=== PATIENT | male | born 1960 | race Caucasian/White ===

== ENCOUNTER → 2016-11-02 | Outpatient (REF) | payer MEDICARE ==
[~2016-11-02] MED LIST: /ADVA50050 IN; /MOXI40TA OR; /TIOT18INH INH; ALBU17IN2 IN; BREO1INH3 INH; DUONSOL IN; FERR325T OR; FISH1000 OR; MUCINEX PO; NICO21DI4 TD; OMACOR PO; PRAV40TA OR; PRED10TA2 OR; PRIL20CA OR; ROSU10TA PO; SLEEP AID PO; SOMA350T OR; SPIR12.9 INH; TESS100C OR
[2016-11-02 11:47] LABS: BASO # 0.1 K/mm3 (0.0-0.2); BASO % 0.8 % (0.0-1.0); EOS # 0.3 K/mm3 (0.0-0.50); EOS % 3.7 % (0.0-3.0); LARGE UNSTAINED CELL # 0.2 K/mm3 (0.0-0.4); LARGE UNSTAINED CELL % 1.8 % (0.0-4.0); LYMPH # 1.9 K/mm3 (1.5-4.5); LYMPH % 21.2 % (24.0-44.0); MEAN CORPUSCULAR HEMOGLOBIN 30.8 pg (27.0-33.0); MEAN CORPUSCULAR HGB CONC 32.8 g/dl (32.0-36.5); MEAN CORPUSCULAR VOLUME 93.7 fl (80.0-96.0); MONO # 0.7 K/mm3 (0.0-0.8); MONO % 8.4 % (0.0-5.0); NEUTROPHILS # 5.3 K/mm3 (1.8-7.7); NEUTROPHILS % 64.1 % (36.0-66.0); PLATELET COUNT, AUTOMATED 295 k/mm3 (150-450); RED CELL DISTRIBUTION WIDTH 13.3 % (11.5-14.5); WHITE BLOOD COUNT 8.2 K/mm3 (4.0-10.0)
[2016-11-02 12:30] LABS: ALBUMIN 4.3 GM/DL (3.2-5.2); ALBUMIN/GLOBULIN RATIO 1.34 (1.00-1.93); ALKALINE PHOSPHATASE 80 U/L (45-117); ALT/SGPT 49 U/L (12-78); ANION GAP 9 MEQ/L (8-16); AST/SGOT 34 U/L (15-37); BILIRUBIN,TOTAL 0.8 MG/DL (0.2-1.0); BLOOD UREA NITROGEN 11 MG/DL (7-18); CALCIUM LEVEL 8.6 MG/DL (8.5-10.1); CARBON DIOXIDE LEVEL 27 MEQ/L (21-32); CHLORIDE LEVEL 106 MEQ/L (98-107); CHOLESTEROL LEVEL 115 MG/DL (<200); CREATININE FOR GFR 0.88 MG/DL (0.70-1.30); GLOMERULAR FILTRATION RATE > 60.0 (>56); GLUCOSE, FASTING 119 MG/DL (70-105); POTASSIUM SERUM 4.6 MEQ/L (3.5-5.1); SODIUM LEVEL 142 MEQ/L (136-145); TOTAL PROTEIN 7.5 GM/DL (6.4-8.2); TRIGLYCERIDES LEVEL 185 MG/DL (<150)
== END ==
LOC: M SFHCPLAZ 08:47
PROVIDERS: ATTEND Nurse Practitioner Family
DX: J44.9 Chronic obstructive pulmonary disease, unspecified (principal); D50.9 Iron deficiency anemia, unspecified; E78.5 Hyperlipidemia, unspecified; R73.01 Impaired fasting glucose
CPT/HCPCS: 36415; 80053; 80061; 83036; 83540; 85025; G0463

== ENCOUNTER → 2017-05-07 | Outpatient (REF) | payer MEDICARE ==
[~2017-05-07] MED LIST changes: +CRES10TA32 PO; -ROSU10TA PO
[2017-05-07 11:41] LABS: BASO # 0.1 K/mm3 (0.0-0.2); BASO % 0.8 % (0.0-1.0); EOS # 0.2 K/mm3 (0.0-0.50); EOS % 2.1 % (0.0-3.0); LARGE UNSTAINED CELL # 0.2 K/mm3 (0.0-0.4); LARGE UNSTAINED CELL % 1.7 % (0.0-4.0); LYMPH # 2.2 K/mm3 (1.5-4.5); LYMPH % 19.8 % (24.0-44.0); MEAN CORPUSCULAR HEMOGLOBIN 26.8 pg (27.0-33.0); MEAN CORPUSCULAR HGB CONC 31.4 g/dl (32.0-36.5); MEAN CORPUSCULAR VOLUME 85.4 fl (80.0-96.0); MONO # 0.7 K/mm3 (0.0-0.8); MONO % 7.1 % (0.0-5.0); NEUTROPHILS # 6.9 K/mm3 (1.8-7.7); NEUTROPHILS % 68.5 % (36.0-66.0); PLATELET COUNT, AUTOMATED 364 k/mm3 (150-450); RED CELL DISTRIBUTION WIDTH 14.7 % (11.5-14.5)
[2017-05-07 11:51] LABS: ALBUMIN 3.8 GM/DL (3.2-5.2); ALBUMIN/GLOBULIN RATIO 1.03 (1.00-1.93); ALKALINE PHOSPHATASE 73 U/L (45-117); ALT/SGPT 30 U/L (12-78); ANION GAP 7 MEQ/L (8-16); AST/SGOT 20 U/L (15-37); BILIRUBIN,TOTAL 0.3 MG/DL (0.2-1.0); BLOOD UREA NITROGEN 13 MG/DL (7-18); CALCIUM LEVEL 8.8 MG/DL (8.5-10.1); CARBON DIOXIDE LEVEL 28 MEQ/L (21-32); CHLORIDE LEVEL 105 MEQ/L (98-107); CHOLESTEROL LEVEL 104 MG/DL (<200); GLOMERULAR FILTRATION RATE > 60.0 (>56); GLUCOSE, FASTING 116 MG/DL (70-105); POTASSIUM SERUM 4.6 MEQ/L (3.5-5.1); SODIUM LEVEL 140 MEQ/L (136-145); TOTAL PROTEIN 7.5 GM/DL (6.4-8.2); TRIGLYCERIDES LEVEL 140 MG/DL (<150)
== END ==
LOC: M SFHCLERA 08:12
PROVIDERS: ATTEND Nurse Practitioner Family
DX: J44.9 Chronic obstructive pulmonary disease, unspecified (principal); E11.9 Type 2 diabetes mellitus without complications; I10 Essential (primary) hypertension

== ENCOUNTER → 2017-11-18 | Outpatient (REF) | payer MEDICARE ==
[2017-11-18 12:19] LABS: BASO # 0.1 10^3/uL (0.0-0.2); EOS # 0.3 10^3/uL (0.0-0.50); EOS % 2.7 % (0.0-3.0); HEMATOCRIT 34.3 % (42.0-52.0); HEMOGLOBIN 9.1 g/dl (14.0-18.0); IMMATURE GRANULOCYTE % 0.3 % (0-3.0); LYMPH % 19.7 % (24.0-44.0); MEAN CORPUSCULAR HEMOGLOBIN 18.7 pg (27.0-33.0); MEAN CORPUSCULAR HGB CONC 26.5 g/dl (32.0-36.5); MEAN CORPUSCULAR VOLUME 70.6 fl (80.0-96.0); NEUTROPHILS # 6.6 10^3/uL (1.8-7.7); NEUTROPHILS % 66.3 % (36.0-66.0); PLATELET COUNT, AUTOMATED 275 10^3/uL (150-450); RED BLOOD COUNT 4.86 10^6/uL (4.30-6.10); RED CELL DISTRIBUTION WIDTH 20.8 % (11.5-14.5); WHITE BLOOD COUNT 9.9 10^3/uL (4.0-10.0)
[2017-11-18 12:41] LABS: ALBUMIN 3.9 GM/DL (3.2-5.2); ALKALINE PHOSPHATASE 85 U/L (45-117); ALT/SGPT 24 U/L (12-78); ANION GAP 6 MEQ/L (8-16); AST/SGOT 18 U/L (7-37); BILIRUBIN,TOTAL 0.4 MG/DL (0.2-1.0); BLOOD UREA NITROGEN 10 MG/DL (7-18); CALCIUM LEVEL 8.9 MG/DL (8.5-10.1); CARBON DIOXIDE LEVEL 28 MEQ/L (21-32); CHLORIDE LEVEL 106 MEQ/L (98-107); CHOLESTEROL LEVEL 99 MG/DL (<200); CHOLESTEROL RISK RATIO 3.193 (<5); CREATININE FOR GFR 0.68 MG/DL (0.70-1.30); GLOMERULAR FILTRATION RATE > 60.0 (>56); GLUCOSE, FASTING 105 MG/DL (70-100); HDL CHOLESTEROL 31 MG/DL (>40); LDL CHOLESTEROL 16.6 MG/DL (<100); NON-HDL-C 68 MG/DL; POTASSIUM SERUM 4.5 MEQ/L (3.5-5.1); SODIUM LEVEL 140 MEQ/L (136-145); TOTAL PROTEIN 7.8 GM/DL (6.4-8.2); TRIGLYCERIDES LEVEL 257 MG/DL (<150)
[2017-11-18 13:27] LABS: ESTIMATED AVERAGE GLUCOSE 140 MG/DL (60-110); HEMOGLOBIN A1c 6.5 %
== END ==
LOC: M SFHCLERA 09:10
DX: I10 Essential (primary) hypertension (principal); E11.9 Type 2 diabetes mellitus without complications

== ENCOUNTER → 2017-11-18 | Outpatient (CLI) | payer MEDICARE | LOC: M RAD 08:23 | DX: Z12.2 Encounter for screening for malignant neoplasm of respiratory organs (principal); F17.218 Nicotine dependence, cigarettes, with other nicotine-induced disorders; J44.9 Chronic obstructive pulmonary disease, unspecified; I10 Essential (primary) hypertension; E11.9 Type 2 diabetes mellitus without complications | CPT/HCPCS: G0297 ==

== ENCOUNTER → 2017-11-25 | Outpatient (REF) | payer MEDICARE | LOC: M SFHCLERA 08:10 | DX: D50.9 Iron deficiency anemia, unspecified (principal) ==

== ENCOUNTER 2018-01-14 16:20 | Emergency (ER) | payer MEDICARE ==
[2018-01-14] MEDS: methylPREDNISolone INJ 125 MG/2 ML VIAL (J2930) IV ×2 (17:04)
[2018-01-14 17:16] LABS: BASO # 0.1 10^3/uL (0.0-0.2); BASO % 0.4 % (0.0-1.0); EOS # 0.2 10^3/uL (0.0-0.50); EOS % 1.3 % (0.0-3.0); HEMATOCRIT 38.3 % (42.0-52.0); HEMOGLOBIN 11.2 g/dl (13.5-17.5); IMMATURE GRANULOCYTE % 0.4 % (0-3.0); LYMPH # 2.1 10^3/uL (1.5-4.5); LYMPH % 15.6 % (24.0-44.0); MEAN CORPUSCULAR HEMOGLOBIN 21.6 pg (27.0-33.0); MEAN CORPUSCULAR HGB CONC 29.2 g/dl (32.0-36.5); MEAN CORPUSCULAR VOLUME 73.9 fl (80.0-96.0); MONO # 1.2 10^3/uL (0.0-0.8); MONO % 8.7 % (0.0-5.0); NEUTROPHILS # 10.1 10^3/uL (1.8-7.7); NEUTROPHILS % 73.6 % (36.0-66.0); PLATELET COUNT, AUTOMATED 352 10^3/uL (150-450); RED BLOOD COUNT 5.18 10^6/uL (4.30-6.10); RED CELL DISTRIBUTION WIDTH 24.1 % (11.5-14.5); WHITE BLOOD COUNT 13.7 10^3/uL (4.0-10.0)
[2018-01-14 17:30] LABS: LACTIC ACID SEPSIS PROTOCOL 1.3 MMOL/L (0.4-2.0)
[2018-01-14 17:38] LABS: ALBUMIN 3.5 GM/DL (3.2-5.2); ALBUMIN/GLOBULIN RATIO 0.69 (1.00-1.93); ALKALINE PHOSPHATASE 93 U/L (45-117); ALT/SGPT 31 U/L (12-78); ANION GAP 6 MEQ/L (8-16); AST/SGOT 24 U/L (7-37); BILIRUBIN,DIRECT 0.1 MG/DL (0.0-0.2); BILIRUBIN,TOTAL 0.4 MG/DL (0.2-1.0); BLOOD UREA NITROGEN 12 MG/DL (7-18); CARBON DIOXIDE LEVEL 26 MEQ/L (21-32); CHLORIDE LEVEL 106 MEQ/L (98-107); CPK CREATINE PHOSPHOKINASE 153 U/L (39-308); CREATININE FOR GFR 0.78 MG/DL (0.70-1.30); GLOMERULAR FILTRATION RATE > 60.0 (>56); GLUCOSE, FASTING 98 MG/DL (70-100); SODIUM LEVEL 138 MEQ/L (136-145); TOTAL PROTEIN 8.6 GM/DL (6.4-8.2); TROPONIN I < 0.02 NG/ML (< 0.10)
[2018-01-14] MEDS: IPRATROPIUM 0.5MG/ALBUTEROL 2.5MG INH SOL UD 3ML (DUONEB)(J7620) NEB ×2 (17:38)
[2018-01-14 17:43] LABS: CK-MB VALUE MASS 2.6 NG/ML (<3.6); MB/CK RELATIVE INDEX 1.69 (< OR =4); NT-PRO BNP 45 PG/ML (<125)
[2018-01-14] MEDS ORDERED: ISOVUE-370 76% 100ML VIAL (Q9967) As Ordered ×2 (17:51)
[2018-01-14] MEDS: SYMBICORT 160/4.5MCG INHALER 6GM INH ×2 (20:55)
== END 2018-01-14 21:01 | disposition home or self-care (01) ==
LOC: M ED 16:20
DX: J44.1 Chronic obstructive pulmonary disease with (acute) exacerbation (principal); R07.9 Chest pain, unspecified; E11.9 Type 2 diabetes mellitus without complications; E78.5 Hyperlipidemia, unspecified; J45.909 Unspecified asthma, uncomplicated; D50.9 Iron deficiency anemia, unspecified; F17.200 Nicotine dependence, unspecified, uncomplicated; Z88.6 Allergy status to analgesic agent; Z79.899 Other long term (current) drug therapy; Z79.51 Long term (current) use of inhaled steroids
CPT/HCPCS: Q9967

== ENCOUNTER → 2018-01-14 | Outpatient (REF) | payer MEDICARE ==
[2018-01-14 16:39] LABS: HEMATOCRIT 40.1 % (42.0-52.0); HEMOGLOBIN 11.6 g/dl (13.5-17.5); MEAN CORPUSCULAR HEMOGLOBIN 21.4 pg (27.0-33.0); MEAN CORPUSCULAR HGB CONC 28.9 g/dl (32.0-36.5); PLATELET COUNT, AUTOMATED 361 10^3/uL (150-450); RED BLOOD COUNT 5.42 10^6/uL (4.30-6.10); RED CELL DISTRIBUTION WIDTH 24.5 % (11.5-14.5); WHITE BLOOD COUNT 13.7 10^3/uL (4.0-10.0)
[2018-01-14 17:11] LABS: FERRITIN 13 NG/ML (26-388); IRON (FE) 24 UG/DL (65-175); TOTAL IRON BINDING CAPACITY 343 UG/DL (250-450)
== END ==
LOC: M SFHCLERA 11:56
DX: D50.9 Iron deficiency anemia, unspecified (principal)
CPT/HCPCS: 83550

== ENCOUNTER → 2018-05-27 | Outpatient (REF) | payer MEDICARE ==
[2018-05-27 11:42] LABS: BASO # 0.1 10^3/uL (0.0-0.2); BASO % 0.8 % (0.0-1.0); EOS # 0.2 10^3/uL (0.0-0.50); HEMATOCRIT 45.8 % (42.0-52.0); HEMOGLOBIN 14.7 g/dl (13.5-17.5); IMMATURE GRANULOCYTE % 0.3 % (0-3.0); LYMPH # 2.1 10^3/uL (1.5-4.5); LYMPH % 21.3 % (24.0-44.0); MEAN CORPUSCULAR HEMOGLOBIN 27.9 pg (27.0-33.0); MEAN CORPUSCULAR HGB CONC 32.1 g/dl (32.0-36.5); MEAN CORPUSCULAR VOLUME 86.9 fl (80.0-96.0); MONO % 9.9 % (0.0-5.0); NEUTROPHILS # 6.3 10^3/uL (1.8-7.7); NEUTROPHILS % 65.7 % (36.0-66.0); PLATELET COUNT, AUTOMATED 286 10^3/uL (150-450); RED BLOOD COUNT 5.27 10^6/uL (4.30-6.10); RED CELL DISTRIBUTION WIDTH 17.3 % (11.5-14.5); WHITE BLOOD COUNT 9.6 10^3/uL (4.0-10.0)
[2018-05-27 11:59] LABS: FERRITIN 8 NG/ML (26-388); IRON (FE) 71 UG/DL (65-175); PERCENT SATURATION 21.4 % (19.7-50.0); TOTAL IRON BINDING CAPACITY 332 UG/DL (250-450)
[2018-05-27 13:21] LABS: ESTIMATED AVERAGE GLUCOSE 151 MG/DL (60-110); HEMOGLOBIN A1c 6.9 %
== END ==
LOC: M SFHCLERA 08:39
DX: D50.9 Iron deficiency anemia, unspecified (principal); E11.9 Type 2 diabetes mellitus without complications
CPT/HCPCS: 83550

== ENCOUNTER → 2018-09-17 | Outpatient (REF) | payer MEDICARE ==
[~2018-09-17] MED LIST changes: +FISH1000 PO; +IPRA0.00 INH; +LIPI80TA PO; +LISI-542 PO; +PRED20TA PO; +PROAAER10 INH; +VITMTA PO; +ZZZQ25CA PO
[2018-09-17 11:57] LABS: BLOOD UREA NITROGEN 8 MG/DL (7-18); CALCIUM LEVEL 8.6 MG/DL (8.5-10.1); CARBON DIOXIDE LEVEL 29 MEQ/L (21-32); CHLORIDE LEVEL 104 MEQ/L (98-107); CREATININE FOR GFR 0.86 MG/DL (0.70-1.30); GLOMERULAR FILTRATION RATE > 60.0 (>56); GLUCOSE, FASTING 108 MG/DL (70-100); POTASSIUM SERUM 4.3 MEQ/L (3.5-5.1); SODIUM LEVEL 139 MEQ/L (136-145)
[2018-09-17 14:00] LABS: HEMOGLOBIN A1c 6.8 %
== END ==
LOC: M SFHCLERA 08:24
PROVIDERS: ATTEND Family Medicine
DX: E11.9 Type 2 diabetes mellitus without complications (principal)
CPT/HCPCS: 80048; 83036; G0463

== ENCOUNTER → 2018-11-19 | Outpatient (CLI) | payer MEDICARE ==
--- NOTE | 2018-11-19 11:38 | REP ---
Low-dose lung screening CT: Comparisons are 11/18/2017, 07/19/2016 and 04/28/2014. The study is performed without IV contrast. The images are presented at lung windowing only. There are no nodules or masses. There are no infiltrates or effusions. The tiny 3 ml left upper lobe lung nodule identified on 11/18/2017 is no longer present. There is chronic fibro linear scarring in the lingula, unchanged. There is a tiny pleural based parenchymal scar posteriorly in the superior segment of the left upper lobe, unchanged. Impression: Category [address] low-dose lung [address] CT. The probability of malignancy is less than 1%. Annual follow-up low-dose lung screening CT is recommended. Electronically Signed by Filipe Reyes MD 11/19/2018 11:29 A
== END ==
LOC: M RAD 08:33
PROVIDERS: ATTEND Internal Medicine Pulmonary Disease
DX: Z12.2 Encounter for screening for malignant neoplasm of respiratory organs (principal); F17.210 Nicotine dependence, cigarettes, uncomplicated; J44.9 Chronic obstructive pulmonary disease, unspecified; J98.4 Other disorders of lung

== ENCOUNTER → 2019-01-19 | Outpatient (REF) | payer MEDICARE ==
[~2019-01-19] MED LIST changes: -/ADVA50050 IN; -/MOXI40TA OR; -/TIOT18INH INH; +ADVA1AER2 IN; +AVEL1TAB2 OR; +CRES10TA PO; -CRES10TA32 PO; +SPIR1CAP INH
[2019-01-19 11:31] LABS: BASO # 0.1 10^3/uL (0.0-0.2); BASO % 0.8 % (0.0-1.0); EOS # 0.2 10^3/uL (0.0-0.50); EOS % 2.3 % (0.0-3.0); HEMATOCRIT 42.7 % (42.0-52.0); HEMOGLOBIN 13.4 g/dl (13.5-17.5); LYMPH # 1.6 10^3/uL (1.5-4.5); LYMPH % 17.3 % (24.0-44.0); MEAN CORPUSCULAR HEMOGLOBIN 27.7 pg (27.0-33.0); MEAN CORPUSCULAR HGB CONC 31.4 g/dl (32.0-36.5); MEAN CORPUSCULAR VOLUME 88.2 fl (80.0-96.0); MONO % 10.7 % (0.0-5.0); NEUTROPHILS # 6.2 10^3/uL (1.8-7.7); NEUTROPHILS % 68.2 % (36.0-66.0); PLATELET COUNT, AUTOMATED 346 10^3/uL (150-450); RED BLOOD COUNT 4.84 10^6/uL (4.30-6.10); WHITE BLOOD COUNT 9.1 10^3/uL (4.0-10.0)
[2019-01-19 11:50] LABS: CHOLESTEROL RISK RATIO 3.628 (<5)
[2019-01-19 13:40] LABS: HEMOGLOBIN A1c 6.7 %
== END ==
LOC: M SFHCLERA 08:10
PROVIDERS: ATTEND Family Medicine
DX: E11.9 Type 2 diabetes mellitus without complications (principal); E78.5 Hyperlipidemia, unspecified; D50.9 Iron deficiency anemia, unspecified

== ENCOUNTER → 2019-09-01 | Outpatient (REF) | payer MEDICARE ==
[2019-09-01 12:40] LABS: BASO # 0.1 10^3/uL (0.0-0.2); BASO % 0.8 % (0.0-1.0); EOS # 0.3 10^3/uL (0.0-0.5); EOS % 2.2 % (0.0-3.0); HEMATOCRIT 39.5 % (42.0-52.0); HEMOGLOBIN 11.4 g/dl (13.5-17.5); LYMPH # 1.8 10^3/uL (1.5-5.0); LYMPH % 15.5 % (24.0-44.0); MEAN CORPUSCULAR HEMOGLOBIN 23.8 pg (27.0-33.0); MEAN CORPUSCULAR HGB CONC 28.9 g/dl (32.0-36.5); MEAN CORPUSCULAR VOLUME 82.5 fl (80.0-96.0); MONO % 9.1 % (0.0-5.0); NEUTROPHILS # 8.3 10^3/uL (1.5-8.5); NEUTROPHILS % 72.1 % (36.0-66.0); PLATELET COUNT, AUTOMATED 305 10^3/uL (150-450); RED BLOOD COUNT 4.79 10^6/uL (4.30-6.10); WHITE BLOOD COUNT 11.5 10^3/uL (4.0-10.0)
[2019-09-01 12:45] LABS: BLOOD UREA NITROGEN 16 MG/DL (7-18); CALCIUM LEVEL 8.6 MG/DL (8.8-10.2); CARBON DIOXIDE LEVEL 30 MEQ/L (21-32); CHLORIDE LEVEL 105 MEQ/L (98-107); GLOMERULAR FILTRATION RATE > 60.0 (>49); GLUCOSE, FASTING 111 MG/DL (70-100); POTASSIUM SERUM 4.1 MEQ/L (3.5-5.1); SODIUM LEVEL 139 MEQ/L (136-145)
[2019-09-01 13:39] LABS: HEMOGLOBIN A1c 6.7 %
== END ==
LOC: M SFHCLERA 09:28
PROVIDERS: ATTEND Family Medicine
DX: D50.9 Iron deficiency anemia, unspecified (principal); E11.9 Type 2 diabetes mellitus without complications; I10 Essential (primary) hypertension
CPT/HCPCS: 80048; 83036; 85025; G0463

== ENCOUNTER → 2019-12-01 | Outpatient (REF) | payer MEDICARE ==
[2019-12-01 12:15] LABS: BASO # 0.1 10^3/uL (0.0-0.2); BASO % 1.1 % (0.0-1.0); EOS # 0.2 10^3/uL (0.0-0.5); HEMATOCRIT 32.1 % (42.0-52.0); HEMOGLOBIN 9.1 g/dl (13.5-17.5); LYMPH # 2.2 10^3/uL (1.5-5.0); LYMPH % 18.9 % (24.0-44.0); MEAN CORPUSCULAR HEMOGLOBIN 20.7 pg (27.0-33.0); MEAN CORPUSCULAR HGB CONC 28.3 g/dl (32.0-36.5); MONO # 1.3 10^3/uL (0.0-0.8); MONO % 11.5 % (0.0-5.0); NEUTROPHILS # 7.6 10^3/uL (1.5-8.5); PLATELET COUNT, AUTOMATED 281 10^3/uL (150-450); WHITE BLOOD COUNT 11.5 10^3/uL (4.0-10.0)
[2019-12-01 12:38] LABS: PERCENT SATURATION 2.6 % (19.7-50.0)
== END ==
LOC: M SFHCLERA 08:07
PROVIDERS: ATTEND Family Medicine
DX: D50.8 Other iron deficiency anemias (principal)
CPT/HCPCS: 82728; 83550; 85025; G0463

== ENCOUNTER → 2020-03-31 | Outpatient (CLI) | payer MEDICARE ==
--- NOTE | 2020-03-31 08:36 | REP ---
Clinical: Lung screening. History smoking. Comparison: 11/19/2018, 01/14/2018 Technique: Axial low-dose noncontrast images from the thoracic inlet to the upper abdomen using lung screening technique. Findings: The lung law are well-aerated. No consolidation, significant nodule or mass lesion is appreciated. Small areas of scarring primarily in the posterior left upper lobe and the lateral lingula again noted. No pleural effusion/reaction or pneumothorax. Tracheobronchial tree is patent. Mediastinum demonstrates mild atherosclerotic changes of the coronary arteries without cardiomegaly. Impression: Lung-RADS category I. No nodule or suspicious abnormality. Electronically Signed by Dominic Luis MD 03/31/2020 08:28 A
== END ==
LOC: M RAD 07:07
PROVIDERS: ATTEND Internal Medicine Pulmonary Disease
DX: Z12.2 Encounter for screening for malignant neoplasm of respiratory organs (principal); F17.218 Nicotine dependence, cigarettes, with other nicotine-induced disorders

== ENCOUNTER → 2021-06-20 | Outpatient (CLI) | payer MEDICARE ==
[~2021-06-20] MED LIST changes: -LISI-542 PO; +LISI-898 PO
--- NOTE | 2021-06-20 10:12 | REP ---
INDICATION: NICOTINE DEPEND. COMPARISON: Multiple the latest 03/31/2020 also low-dose screening CT TECHNIQUE: Axial noncontrast images from the thoracic inlet to the upper abdomen using low-dose lung screening technique (LDCT). As per the protocol only lung window images were sent to the read station for interpretation. FINDINGS: The lingular asymmetric density is unchanged. In the anterior segment of the left upper lobe there is a new pleural based 8 mm sized density. There is an unchanged pleural based density in the superior segment of the left lower lobe. There is early cylindrical bronchiectasis status quo. There are no other significant lung field changes. Grossly, the mediastinum and pulmonary len are unchanged. Grossly, the imaged upper abdomen and imaged osseous structures are unchanged. IMPRESSION: There is a new left upper lobe pleural based asymmetric density as described above. According to the revised Fleischner society criteria this represents a category 4A lesion for which a 3 month follow-up CT is recommended. <Electronically signed by Mando Mejia > 06/20/21 [id number]
== END ==
LOC: M RAD 08:09
PROVIDERS: ATTEND Internal Medicine Pulmonary Disease
DX: F17.218 Nicotine dependence, cigarettes, with other nicotine-induced disorders (principal)

== ENCOUNTER → 2021-09-27 | Outpatient (CLI) | payer MEDICARE ==
--- NOTE | 2021-09-27 10:59 | REP ---
INDICATION: SOLITARY PULMONARY NODULE COMPARISON: Multiple prior examinations dating to 01/07/2013 TECHNIQUE: Axial noncontrast images from the thoracic inlet to the upper abdomen with coronal and sagittal reformations. This CT examination was performed using the following dose reduction techniques: Automated exposure control, adjustment of mA and/or kv according to the patient's size, and use of iterative reconstruction technique. FINDINGS: Bilateral lung law are well aerated and the chronic linear scarring at the lingula as well as chronic peribronchial thickening to the right middle lobe and to a lesser extent bronchiectasis and mild emphysematous changes remains stable. There is no evidence for acute or suspicious consolidation, nodule or mass lesion. The small non solid ground-glass subpleural density along the anterior left upper lobe on most recent prior examination has resolved. No effusion. No pneumothorax. Mediastinum demonstrates stable atherosclerotic changes to the thoracic aorta and coronary arteries. Tracheobronchial tree is patent. No significant adenopathy. Musculoskeletal structures are intact. IMPRESSION: 1. Chronic stable changes. 2. Previously identified small non solid density in the left upper lobe resolved. 3. No acute suspicious mediastinal or pleuroparenchymal process. <Electronically signed by Dominic Luis > 09/27/21 [id number]
== END ==
LOC: M PLAIMG 09:26
PROVIDERS: ATTEND Internal Medicine Pulmonary Disease
DX: R91.1 Solitary pulmonary nodule (principal)

== ENCOUNTER → 2021-12-04 | Outpatient (CLI) | payer MEDICARE ==
[~2021-12-04] MED LIST changes: +FERR325T3 PO; -LISI-898 PO; +LISI5TAB11 PO; +SOMA350T PO
== END ==
LOC: M LABSMTC 10:54
PROVIDERS: ATTEND Anesthesiology
DX: Z01.818 Encounter for other preprocedural examination (principal); Z11.52 Encounter for screening for COVID-19

== ENCOUNTER 2021-12-08 09:31 | Day surgery (SDC) | payer MEDICARE ==
[~2021-12-08] VITALS: Ht 175.3 cm; Wt 76.8 kg
[~2021-12-08 09:31] MED LIST changes: +NS 1,000 ML IV ONE
[2021-12-08] MEDS ORDERED: fentaNYL 100 MCG/2 ML INJECTION As Ordered ONE (10:47)
[2021-12-08] MEDS ORDERED: LIDOCAINE 2% 100MG/5ML SDV (FOR ANES.) As Ordered ONE (11:34)
[2021-12-08] MEDS ORDERED: propofoL 200 MG/20 ML VIAL As Ordered ONE (11:34)
[2021-12-08 11:50] VITALS: BP 127/82
== END 2021-12-08 11:58 | disposition home or self-care (01) ==
LOC: M OPP 09:31
PROVIDERS: ATTEND Internal Medicine Gastroenterology
DX: D12.2 Benign neoplasm of ascending colon (principal); D12.3 Benign neoplasm of transverse colon; D12.5 Benign neoplasm of sigmoid colon; K57.30 Diverticulosis of large intestine without perforation or abscess without bleeding; K55.20 Angiodysplasia of colon without hemorrhage; K64.8 Other hemorrhoids; Z86.010 Personal history of colon polyps; D50.9 Iron deficiency anemia, unspecified; K29.80 Duodenitis without bleeding; K29.70 Gastritis, unspecified, without bleeding; I10 Essential (primary) hypertension; J44.9 Chronic obstructive pulmonary disease, unspecified; F17.210 Nicotine dependence, cigarettes, uncomplicated; Z79.899 Other long term (current) drug therapy; Z88.8 Allergy status to other drugs, medicaments and biological substances; Z80.1 Family history of malignant neoplasm of trachea, bronchus and lung; Z80.8 Family history of malignant neoplasm of other organs or systems
CPT/HCPCS: 43239; 45382; 45385; 88305; J3010

== ENCOUNTER → 2022-10-08 | Outpatient (CLI) | payer MEDICARE ==
[~2022-10-08] MED LIST changes: -NS 1,000 ML IV ONE
== END ==
LOC: M RAD 08:15
PROVIDERS: ATTEND Internal Medicine Pulmonary Disease
DX: Z87.891 Personal history of nicotine dependence (principal)

== ENCOUNTER → 2023-10-28 | Outpatient (CLI) | payer MEDICARE | LOC: M RAD 07:47 | PROVIDERS: ATTEND Internal Medicine Pulmonary Disease | DX: F17.218 Nicotine dependence, cigarettes, with other nicotine-induced disorders (principal) ==

== ENCOUNTER → 2024-08-03 | Outpatient (REF) | payer MEDICARE ==
[2024-08-03 18:26] LABS: BASO # 0.1 10^3/uL (0.0-0.2); BASO % 1.1 % (0.0-1.0); EOS # 0.2 10^3/uL (0.0-0.5); HEMATOCRIT 45.1 % (42.0-52.0); HEMOGLOBIN 14.5 g/dl (13.5-17.5); LYMPH % 24.9 % (24.0-44.0); MEAN CORPUSCULAR HEMOGLOBIN 30.2 pg (27.0-33.0); MEAN CORPUSCULAR HGB CONC 32.2 g/dl (32.0-36.5); MONO # 0.8 10^3/uL (0.0-0.8); MONO % 9.5 % (2.0-8.0); NEUTROPHILS % 62.4 % (36.0-66.0); PLATELET COUNT, AUTOMATED 303 10^3/uL (150-450)
[2024-08-03 18:31] LABS: IRON (FE) 76 UG/DL (65-175); PERCENT SATURATION 22.8 % (19.7-50.0); TOTAL IRON BINDING CAPACITY 333 UG/DL (250-425)
[2024-08-03 18:32] LABS: ALBUMIN 3.8 G/DL (3.2-5.2); ALKALINE PHOSPHATASE 66 U/L (40-129); ALT/SGPT 35 U/L (7.0-40); AST/SGOT 29 U/L (<34); BILIRUBIN,TOTAL 0.4 MG/DL (0.3-1.2); BLOOD UREA NITROGEN 12 MG/DL (9-23); CALCIUM LEVEL 9.8 MG/DL (8.3-10.6); CARBON DIOXIDE LEVEL 30 MMOL/L (20-31); CHLORIDE LEVEL 102 MMOL/L (98-107); CHOLESTEROL LEVEL 151 MG/DL (<200); CHOLESTEROL RISK RATIO 3.02 (<5); CREATININE FOR GFR 0.58 MG/DL (0.70-1.30); FERRITIN 9.8 NG/ML (10.5-307.3); GLOMERULAR FILTRATION RATE > 60.0 (>49); GLUCOSE, FASTING 111 MG/DL (74-106); LDL CHOLESTEROL 79.6 MG/DL (<100); POTASSIUM SERUM 4.3 MMOL/L (3.5-5.1); SODIUM LEVEL 137 MMOL/L (136-145); TOTAL PROTEIN 7.6 G/DL (5.7-8.2); TRIGLYCERIDES LEVEL 107 MG/DL (<150)
== END ==
LOC: M SFHCLERA 10:07
DX: D50.9 Iron deficiency anemia, unspecified (principal); E11.9 Type 2 diabetes mellitus without complications; E78.5 Hyperlipidemia, unspecified; Z12.5 Encounter for screening for malignant neoplasm of prostate
CPT/HCPCS: 80053; 80061; 82728; 83036; 83550; 84443; 85025; G0103

== ENCOUNTER → 2024-12-02 | Outpatient (CLI) | payer MEDICARE, OTHER ==
[~2024-12-02] MED LIST changes: +ATOR-398 PO; -LIPI80TA PO
== END ==
LOC: M RAD 07:13
PROVIDERS: ATTEND Internal Medicine Pulmonary Disease
DX: F17.218 Nicotine dependence, cigarettes, with other nicotine-induced disorders (principal)

== ENCOUNTER → 2024-12-07 | Outpatient (REF) | payer MEDICARE, OTHER | LOC: M LAB REF 12:34 | PROVIDERS: ATTEND Internal Medicine Pulmonary Disease | DX: J44.9 Chronic obstructive pulmonary disease, unspecified (principal) ==

== ENCOUNTER → 2024-12-08 | Outpatient (REF) | payer MEDICARE, OTHER | LOC: M SFHCLERA 16:54 | DX: R10.9 Unspecified abdominal pain (principal) ==